=== PATIENT | female | born 2000 | race Caucasian/White ===

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

== ENCOUNTER 2020-06-19 17:39 | Emergency (ER) | payer OTHER ==
[~2020-06-19] VITALS: Ht 165.1 cm; Wt 69.6 kg
[~2020-06-19 17:39] MED LIST changes: +AMOXICILLIN500 M2 PO
[2020-06-19 17:50] VITALS: BP 111/77
== END 2020-06-19 19:30 | disposition home or self-care (01) | DRG 605 ==
LOC: ED 17:39
DX: S80.01XA Contusion of right knee, initial encounter (principal); W01.0XXA Fall on same level from slipping, tripping and stumbling without subsequent striking against object, initial encounter; Y92.89 Other specified places as the place of occurrence of the external cause; Y99.0 Civilian activity done for income or pay

== ENCOUNTER 2023-08-10 20:37 | Emergency (ER) | payer OTHER ==
[~2023-08-10] VITALS: Ht 167.6 cm; Wt 74.0 kg
[~2023-08-10 20:37] MED LIST changes: +ADDERALL XR10 MG PO
[2023-08-10 20:53] VITALS: BP 123/83
[2023-08-10 21:25] LABS: BASO% 0.2 % (0-3); EOS% 0.6 % (0-8); HEMATOCRIT 38.9 % (37.0-47.0); HEMOGLOBIN 13.1 g/dl (12.0-16.0); IMMATURE GRANULOCYTES 0.1 % (0.0-5.0); LYMPH% 40.8 % (15-41); MEAN CORPUSCULAR HGB 29.3 pG CALC (26.0-32.0); MEAN CORPUSCULAR HGB CONC 33.7 g/dL CAL (32.0-36.0); MONO% 7.7 % (2-13); NEUT# 5.56 thou/uL (2.00-7.15); NEUT% 50.6 % (42-76); RED BLOOD COUNT 4.47 mill/uL (4.20-5.60); RED CELL DISTRI WIDTH 12.4 % (11.5-15.5)
[2023-08-10 21:36] LABS: ALBUMIN 4.6 g/dL (3.2-5.0); ALKALINE PHOSPHATASE 58 u/l (38-126); AMYLASE 59 u/l (30-110); ANION GAP 11 (6-22 (CALC)); BILIRUBIN, TOTAL 0.3 mg/dL (0.02-1.3); BUN 13 mg/dL (7-17); BUN/CREATININE RATIO 19 (12-20 (CALC)); CARBON DIOXIDE 26 mmol/l (22-30); CHLORIDE 105 mmol/l (95-108); CREATININE 0.7 mg/dL (0.5-1.0); GFR FOR AFR.AMER. > 60 ML/MIN (>=60 (CALC)); GFR OTHER RACES > 60 ML/MIN (>=60 (CALC)); LIPASE 98 u/l (23-300); POTASSIUM 3.7 mmol/l (3.5-5.1); SGOT/AST 25 u/l (14-36); SODIUM 139 mmol/l (137-146); TOTAL PROTEIN 7.3 g/dL (6.3-8.2)
[2023-08-10 21:47] LABS: URINE BILIRUBIN - DIPSTICK Negative (NEGATIVE); URINE BLOOD DIPSTICK Negative (NEGATIVE); URINE GLUCOSE - DIPSTICK Negative (NEGATIVE); URINE KETONE Negative (NEGATIVE); URINE LEUK ESTERASE Negative (NEGATIVE); URINE NITRITE - DIPSTICK Negative (Negative); URINE PH 5.5 (4.5-8.0); URINE PROTEIN - DIPSTICK Negative (NEG-TRACE); URINE SPECIFIC GRAVITY 1.025; URINE UROBILINOGEN - DIPSTICK 0.2 E.U./dL (0.2)
[2023-08-10 21:48] LABS: URINE COLOR Yellow
[2023-08-11 02:11] VITALS: BP 123/83
== END 2023-08-11 02:20 | disposition home or self-care (01) | DRG 761 ==
LOC: ED 20:37
PROVIDERS: Family Medicine
DX: N94.0 Mittelschmerz (principal)

== ENCOUNTER 2024-04-20 09:36 | Emergency (ER) | payer OTHER, MEDICAID ==
[~2024-04-20] VITALS: Ht 167.6 cm; Wt 77.1 kg
[~2024-04-20 09:36] MED LIST changes: +ZOFRAN4 MG/TAB PO
[2024-04-20 09:47] VITALS: BP 112/71
[2024-04-20] MEDS ORDERED: ONDANSETRON HCl 4 MG/2 ML SDV IV ONE (10:20)
[2024-04-20 10:40] LABS: ALBUMIN 4.6 g/dL (3.2-5.0); BILIRUBIN, TOTAL 0.5 mg/dL (0.02-1.3); CREATININE 0.7 mg/dL (0.5-1.0); POTASSIUM 3.8 mmol/l (3.5-5.1); TOTAL PROTEIN 7.7 g/dL (6.3-8.2)
[2024-04-20 10:41] LABS: BASO% 0.3 % (0-3); EOS% 0.5 % (0-8); HEMATOCRIT 40.5 % (37.0-47.0); HEMOGLOBIN 13.5 g/dl (12.0-16.0); IMMATURE GRANULOCYTES 0.1 % (0.0-5.0); LYMPH% 23.2 % (15-41); MEAN CORPUSCULAR HGB 29.3 pG CALC (26.0-32.0); MEAN CORPUSCULAR HGB CONC 33.3 g/dL CAL (32.0-36.0); NEUT# 6.86 thou/uL (2.00-7.15); NEUT% 71.9 % (42-76); RED BLOOD COUNT 4.6 mill/uL (4.20-5.60); RED CELL DISTRI WIDTH 14.1 % (11.5-15.5)
[2024-04-20] MEDS ORDERED: ONDANSETRON4 MG PO (11:24)
[2024-04-20 11:26] VITALS: BP 112/71
== END 2024-04-20 11:33 | disposition home or self-care (01) | DRG 833 ==
LOC: ED 09:36
PROVIDERS: Family Medicine
DX: O21.9 Vomiting of pregnancy, unspecified (principal); Z3A.00 Weeks of gestation of pregnancy not specified; N91.2 Amenorrhea, unspecified

== ENCOUNTER 2024-08-26 21:24 | Emergency (ER) | payer OTHER, MEDICAID ==
[~2024-08-26] VITALS: Ht 167.6 cm; Wt 77.0 kg
[~2024-08-26 21:24] MED LIST changes: +ONDANSETRON4 MG PO
[2024-08-26] MEDS ORDERED: ACETAMINOPHEN 500 MG TAB PO ONE (23:40)
[2024-08-26 23:51] LABS: URINE BILIRUBIN - DIPSTICK Negative (NEGATIVE); URINE GLUCOSE - DIPSTICK 100 mg/dL (NEGATIVE); URINE KETONE Negative (NEGATIVE); URINE NITRITE - DIPSTICK Negative (Negative); URINE PROTEIN - DIPSTICK Negative (NEG-TRACE)
[2024-08-26 23:55] LABS: URINE BLOOD DIPSTICK Negative (NEGATIVE); URINE COLOR Yellow; URINE LEUK ESTERASE Small (NEGATIVE)
[2024-08-26 23:59] LABS: URINE BACTERIA MODERATE hpf; URINE EPITHELIAL CELLS MODERATE EPI/hpf (0-FEW)
[2024-08-27] VITALS (7 sets, daily range): BP systolic 106–131; BP diastolic 64–78
[2024-08-27 00:12] LABS: BASO% 0.2 % (0-3); EOS% 0.7 % (0-8); HEMATOCRIT 31.2 % (37.0-47.0); IMMATURE GRANULOCYTES 0.6 % (0.0-5.0); LYMPH% 23.1 % (15-41); MEAN CORPUSCULAR HGB 30.5 pG CALC (26.0-32.0); MEAN CORPUSCULAR HGB CONC 32.7 g/dL CAL (32.0-36.0); MONO% 6.5 % (2-13); NEUT# 8.4 thou/uL (2.00-7.15); NEUT% 68.9 % (42-76); RED BLOOD COUNT 3.34 mill/uL (4.20-5.60)
[2024-08-27 00:14] LABS: HEMOGLOBIN 10.2 g/dl (12.0-16.0); MEAN CELL VOLUME 93.4 fL CALC (80.0-100.0)
[2024-08-27 00:23] LABS: BILIRUBIN, TOTAL 0.4 mg/dL (0.02-1.3); CREATININE 0.5 mg/dL (0.5-1.0); POTASSIUM 3.6 mmol/l (3.5-5.1)
[2024-08-27 00:29] LABS: ALBUMIN 3.2 g/dL (3.2-5.0); TOTAL PROTEIN 6.1 g/dL (6.3-8.2)
[2024-08-27] MEDS ORDERED: CEFDINIR300 MG PO (02:27)
== END 2024-08-27 02:49 | disposition home or self-care (01) | DRG 833 ==
LOC: ED 21:24
PROVIDERS: Internal Medicine
DX: O9A.212 Injury, poisoning and certain other consequences of external causes complicating pregnancy, second trimester (principal); M54.50 Low back pain, unspecified; O99.012 Anemia complicating pregnancy, second trimester; O26.892 Other specified pregnancy related conditions, second trimester; R82.90 Unspecified abnormal findings in urine; Z3A.25 25 weeks gestation of pregnancy

== ENCOUNTER 2024-09-19 13:09 | Emergency (ER) | payer OTHER, MEDICAID ==
[~2024-09-19 13:09] MED LIST changes: +CEFDINIR300 MG PO
[2024-09-19 13:25] VITALS: BP 113/73
[2024-09-19 13:30] VITALS: BP 112/74
[2024-09-19 13:45] VITALS: BP 111/75
[2024-09-19 14:00] VITALS: BP 111/73
[2024-09-19 14:15] VITALS: BP 106/69
[2024-09-19 14:38] LABS: HEMATOCRIT 32.3 % (37.0-47.0); HEMOGLOBIN 10.5 g/dl (12.0-16.0); MEAN CELL VOLUME 89.7 fL CALC (80.0-100.0); MEAN CORPUSCULAR HGB 29.2 pG CALC (26.0-32.0); MEAN CORPUSCULAR HGB CONC 32.5 g/dL CAL (32.0-36.0); RED BLOOD COUNT 3.6 mill/uL (4.20-5.60); RED CELL DISTRI WIDTH 13.3 % (11.5-15.5)
[2024-09-19 14:49] LABS: ALBUMIN 3.2 g/dL (3.2-5.0); BILIRUBIN, TOTAL 0.3 mg/dL (0.02-1.3); CREATININE 0.5 mg/dL (0.5-1.0); TOTAL PROTEIN 6.2 g/dL (6.3-8.2)
[2024-09-19 16:35] LABS: URINE BILIRUBIN - DIPSTICK Negative (NEGATIVE); URINE BLOOD DIPSTICK Negative (NEGATIVE); URINE GLUCOSE - DIPSTICK Negative (NEGATIVE); URINE KETONE Negative (NEGATIVE); URINE NITRITE - DIPSTICK Negative (Negative); URINE PROTEIN - DIPSTICK Negative (NEG-TRACE); URINE SPECIFIC GRAVITY 1.025
[2024-09-19 16:44] LABS: URINE COLOR Yellow; URINE LEUK ESTERASE Small (NEGATIVE)
[2024-09-19 16:48] LABS: URINE BACTERIA MANY hpf; URINE RBC 0-2 RBC/hpf (0-5); URINE SQUAMOUS EPITHELIAL CELL MANY EPI/hpf (0-FEW)
[2024-09-19] MEDS ORDERED: KEFLEX500 MG PO (17:10)
[2024-09-19 17:27] VITALS: BP 106/69
== END 2024-09-19 17:48 | disposition home or self-care (01) | DRG 832 ==
LOC: ED 13:09
PROVIDERS: Nurse Practitioner Family
DX: O99.891 Other specified diseases and conditions complicating pregnancy (principal); R10.2 Pelvic and perineal pain; N39.0 Urinary tract infection, site not specified; O23.43 Unspecified infection of urinary tract in pregnancy, third trimester; Z3A.28 28 weeks gestation of pregnancy